=== PATIENT | female | born 1955 | race Caucasian/White ===

== ENCOUNTER 2016-09-08 22:16 | Emergency (ER) | payer OTHER ==
--- NOTE | 2016-09-08 22:22 | ERPHSYRPT ---
- History of Present Illness Time Seen by Provider: 09/08/16 22:16 Source: patient Exam Limitations: intoxication Physician History: ABOUT 45 MINUTES AGO PT WAS SITTING IN A CHAIR AT THE [employer], LOST CONSCIOUSNESS AND FELL OVER HITTING HER RIGHT OCCIPITAL AREA ON THE FLOOR WITH RESULTANT POSTERIOR NECK AND OCCIPITAL PAIN; DENIES NAUSEA, VOMITING, FEVER, CHEST PAIN, SHORTNESS OF AIR, WEAKNESS, NUMBNESS, ABDOMINAL PAIN. PT HAS HAD ONE OTHER SYNCOPAL EPISODE IN [facility] OF LAST YEAR AND WAS TREATED AT [facility]. Allergies/Adverse Reactions: No Known Drug Allergies Allergy (Unverified 09/08/16 22:49) - Review of Systems Constitutional: No Fever Ears, Nose, & Throat: No Ear Pain, No Throat Pain Respiratory: No Dyspnea Cardiac: No Chest Pain Abdominal/Gastrointestinal: No Abdominal Pain, No Nausea, No Vomiting Musculoskeletal: Neck Pain Neurological: Headache, Other (SYNCOPE) Endocrine: No Excessive Sweating All Other Systems: Reviewed and Negative - Nursing Vital Signs Nursing Vital Signs: Initial Vital Signs Temperature 97.2 F Temperature Source Oral Pulse Rate 68 Respiratory Rate 18 Blood Pressure [] 109/48 Pain Intensity 4 - Physical Exam General Appearance: alert Eye Exam: PERRL/EOMI Ears, Nose, Throat Exam: pharynx normal Neck Exam: other (MILD POSTERIOR NECK TENDERNESS) Respiratory Exam: lungs clear Cardiovascular Exam: normal heart sounds Gastrointestinal/Abdomen Exam: soft, normal bowel sounds Back Exam: other (HEALED INCISIONS OVER LUMBAR REGION), No vertebral tenderness Extremity Exam: normal range of motion Neurologic Exam: alert, cooperative, sensation nml, No motor deficits Skin Exam: other (MILD TENDERNESS AND EDEMA OF THE RIGHT SUPERIOR ASPECT OF THE OCCIPITAL AREA.) - Course Nursing assessment & vital signs reviewed: Yes EKG Interpreted by Me: RATE (64), Sinus Rhythm, NORMAL AXIS, NORMAL INTERVALS - Radiology Exams Chest X-ray Interpretation: Interpreted by me, No Pneumonia - CT Exams Head CT Interpretation: Tele-radiologist Report (NORMAL) Cervical Spine CT Interpretation: Tele-radiologist Report (NO FRACTURES OR DISLOCATIONS. DDD. FACET JOINT ARTHROPATHY.) Ordered Tests: Active Orders 24 hr Category Date Time Status Accucheck STAT Care 09/08/16 22:26 Active Cath for Specimen-Straight STAT Care 09/08/16 22:26 Active EKG-ER Only STAT Care 09/08/16 22:23 Active IV Insertion STAT Care 09/08/16 22:23 Active Oxygen-ED Only NASAL CANNULA 2 lpm Care 09/08/16 22:26 Active Pulse Oximetry (ED) STAT Care 09/08/16 22:26 Active CERVICAL SPINE WO CONTRAST [CT] Stat Exams 09/08/16 22:22 Taken CHEST 1 VIEW (PORTABLE) Stat Exams 09/08/16 22:24 Taken HEAD WITHOUT CONTRAST [CT] Stat Exams 09/08/16 22:22 Taken AMYLASE Stat Lab 09/08/16 22:51 Completed CBC W DIFF Stat Lab 09/08/16 22:51 Completed CMP Stat Lab 09/08/16 22:51 Completed CULTURE,URINE Stat Lab 09/09/16 01:21 Ordered ETHOH [Ethyl Alcohol,Urine] Stat Lab 09/08/16 00:34 Completed LIPASE Stat Lab 09/08/16 22:51 Completed MAGNESIUM Stat Lab 09/08/16 22:51 Completed TROPONIN Stat Lab 09/08/16 22:51 Completed UA W/ MICROSCOPIC Stat Lab 09/08/16 00:34 Completed Urine Triage Profile Stat Lab 09/08/16 00:34 Completed Medication Summary Discontinued Medications Generic Name Dose Route Start Last Admin Trade Name Freq PRN Reason Stop Dose Admin Sodium Chloride 1,000 mls @ 999 mls/hr 09/08/16 22:23 09/08/16 23:09 Sodium Chloride 0.9% 1000 Ml IV 09/08/16 23:23 999 mls/hr .Q1H1M STA Administration Sodium Chloride Confirm 09/08/16 23:03 Sodium Chloride 0.9% 1000 Ml Administered 09/08/16 23:04 Dose 1,000 mls @ ud .ROUTE .STK-MED ONE Sodium Chloride 1,000 mls @ 999 mls/hr 09/08/16 23:29 09/09/16 00:47 Sodium Chloride 0.9% 1000 Ml IV 09/09/16 00:29 999 mls/hr .Q1H1M STA Administration Sodium Chloride Confirm 09/09/16 00:46 Sodium Chloride 0.9% 1000 Ml Administered 09/09/16 00:47 Dose 1,000 mls @ ud .ROUTE .STK-MED ONE Lab/Rad Data: Laboratory Result Diagrams 09/08/16 22:51 09/08/16 22:51 Laboratory Results 09/08/16 09/08/16 09/08/16 Range/Units 22:51 22:51 00:34 WBC 10.1 (4.0-10.5) K/mm3 RBC 3.99 L (4.1-5.4) M/mm3 Hgb 13.6 (12.0-16.0) gm/dl Hct 39.2 (35-47) % MCV 98.2 (78-100) fl MCH 34.0 H (26-32) pg MCHC 34.7 (32-36) g/dl RDW 14.2 H (11.5-14.0) % Plt Count 264 (150-450) K/mm3 MPV 11.0 H (6-9.5) fl Gran % 44.0 (36.0-66.0) % Lymphocytes % 46.1 H (24.0-44.0) % Monocytes % 8.5 (0.0-12.0) % Eosinophils % 1.2 (0.00-5.0) % Basophils % 0.2 (0.0-0.4) % Basophils # 0.02 (0-0.4) Sodium 136 (136-145) mEq/L Potassium 4.6 (3.5-5.1) mEq/L Chloride 100 (98-107) mEq/L Carbon Dioxide 22.4 (21-32) mEq/L Anion Gap 17.7 H (5-15) MEQ/L BUN 29 H (9-20) mg/dL Creatinine 1.26 (0.55-1.30) mg/dl Estimated GFR 46 ML/MIN Glucose 99 (70-110) MG/DL Calcium 9.3 (8.5-10.1) mg/dL Magnesium 1.8 (1.8-2.4) mg/dL Total Bilirubin 0.4 (0.2-1.0) mg/dL AST 18 (15-37) U/L ALT 15 (12-78) U/L Alkaline Phosphatase 53 (46-116) U/L Troponin I < 0.017 (0.000-0.056) ng/ml Serum Total Protein 7.1 (6.4-8.2) gm/dL Albumin 3.8 (3.4-5.0) g/dL Amylase 38 (25-115) U/L Lipase 175 (73-393) U/L Ur Collection Type Urine Color (YELLOW) Urine Appearance (CLEAR) Urine pH 6.0 (5-6) Ur Specific [place] (1.005-1.025) Urine Protein (Negative) Urine Glucose (UA) (NEGATIVE) mg/dL Urine Ketones (NEGATIVE) Urine Nitrite (NEGATIVE) Urine Bilirubin (NEGATIVE) Urine Urobilinogen (0-1) mg/dL Urine WBC (Auto) (NEGATIVE) Urine RBC (Auto) (0-5) Kalin/ul Urine Microscopic RBC (0-2) /HPF Urine Microscopic WBC (0-5) /HPF Ur Epithelial Cells (FEW) /HPF Urine Bacteria (NEGATIVE) /HPF Urine Opiates Level (NEGATIVE) Ur Methadone (NEGATIVE) Urine Barbiturates (NEGATIVE) Ur Phencyclidine (PCP) (NEGATIVE) Urine Amphetamine (NEGATIVE) U Benzodiazepine Level (NEGATIVE) Urine Cocaine (NEGATIVE) Urine Marijuana (THC) (NEGATIVE) Urine Ethyl Alcohol 87 H (0.00-20) mg/dl Specimen Received 09/08/16 09/08/16 Range/Units 00:34 00:34 WBC (4.0-10.5) K/mm3 RBC (4.1-5.4) M/mm3 Hgb (12.0-16.0) gm/dl Hct (35-47) % MCV (78-100) fl MCH (26-32) pg MCHC (32-36) g/dl RDW (11.5-14.0) % Plt Count (150-450) K/mm3 MPV (6-9.5) fl Gran % (36.0-66.0) % Lymphocytes % (24.0-44.0) % Monocytes % (0.0-12.0) % Eosinophils % (0.00-5.0) % Basophils % (0.0-0.4) % Basophils # (0-0.4) Sodium (136-145) mEq/L Potassium (3.5-5.1) mEq/L Chloride (98-107) mEq/L Carbon Dioxide (21-32) mEq/L Anion Gap (5-15) MEQ/L BUN (9-20) mg/dL Creatinine (0.55-1.30) mg/dl Estimated GFR ML/MIN Glucose (70-110) MG/DL Calcium (8.5-10.1) mg/dL Magnesium (1.8-2.4) mg/dL Total Bilirubin (0.2-1.0) mg/dL AST (15-37) U/L ALT (12-78) U/L Alkaline Phosphatase (46-116) U/L Troponin I (0.000-0.056) ng/ml Serum Total Protein (6.4-8.2) gm/dL Albumin (3.4-5.0) g/dL Amylase (25-115) U/L Lipase (73-393) U/L Ur Collection Type CLEAN CATCH Urine Color YELLOW (YELLOW) Urine Appearance CLEAR (CLEAR) Urine pH 6.0 (5-6) Ur Specific [place] <=1.005 (1.005-1.025) Urine Protein NEGATIVE (Negative) Urine Glucose (UA) NEGATIVE (NEGATIVE) mg/dL Urine Ketones NEGATIVE (NEGATIVE) Urine Nitrite NEGATIVE (NEGATIVE) Urine Bilirubin NEGATIVE (NEGATIVE) Urine Urobilinogen 0.2 (0-1) mg/dL Urine WBC (Auto) SMALL (NEGATIVE) Urine RBC (Auto) TRACE-LYSED (0-5) Kalin/ul Urine Microscopic RBC 2-5 (0-2) /HPF Urine Microscopic WBC 5-10 (0-5) /HPF Ur Epithelial Cells MODERATE (FEW) /HPF Urine Bacteria MODERATE (NEGATIVE) /HPF Urine Opiates Level NEG. (NEGATIVE) Ur Methadone NEG. (NEGATIVE) Urine Barbiturates NEG. (NEGATIVE) Ur Phencyclidine (PCP) NEG. (NEGATIVE) Urine Amphetamine NEG. (NEGATIVE) U Benzodiazepine Level NEG. (NEGATIVE) Urine Cocaine NEG. (NEGATIVE) Urine Marijuana (THC) NEG. (NEGATIVE) Urine Ethyl Alcohol (0.00-20) mg/dl Specimen Received 09/09/160 - Departure Time of Disposition: 01:26 Departure Disposition: Home Clinical Impression: SYNCOPE, HEAD CONTUSION, ALCOHOL INTOXICATION, DEHYDRATION, UTI Condition: Fair Critical Care Time: No Referrals: CHRISTIN MORTON NP [Primary Care Provider] - Instructions: Fainting, Dehydration -- Adult, Urinary Tract Infection (UTI), Closed Head Injury Additional Instructions: FOLLOW UP WITH PRIVATE DOCTOR TOMORROW. Prescriptions: Smz/Tmp Ds Tablet [Bactrim Ds Tablet] 1 udtab PO BID #20 tablet
[2016-09-08] MEDS ORDERED: Sodium Chloride 0.9% 1000 ML 1,000 ML IV STA ×2 (22:23→23:29)
[2016-09-08 22:56] LABS: BASOPHIL % 0.2 % (0.0-0.4); Eosinophil % 1.2 % (0.00-5.0); Lymphocytes % 46.1 % (24.0-44.0); Mean Cell Volume 98.2 fl (78-100); Monocytes % 8.5 % (0.0-12.0); Platelet Count 264 K/mm3 (150-450); Red Blood Count 3.99 M/mm3 (4.1-5.4); Red Cell Distribution Width 14.2 % (11.5-14.0); White Blood Count 10.1 K/mm3 (4.0-10.5)
[2016-09-08] MEDS ORDERED: Sodium Chloride 0.9% 1000 ML 1,000 ML ONE (23:03)
[2016-09-08 23:18] LABS: ALBUMIN 3.8 g/dL (3.4-5.0); ALKALINE PHOSPHATASE 53 U/L (46-116); ANION GAP 17.7 MEQ/L (5-15); BILIRUBIN,TOTAL 0.4 mg/dL (0.2-1.0); BLOOD UREA NITROGEN 29 mg/dL (9-20); CHLORIDE 100 mEq/L (98-107); Carbon Dioxide 22.4 mEq/L (21-32); Glucose 99 MG/DL (70-110); LIPASE 175 U/L (73-393); MAGNESIUM 1.8 mg/dL (1.8-2.4); Potassium 4.6 mEq/L (3.5-5.1); SGOT/AST 18 U/L (15-37); SGPT/ALT 15 U/L (12-78); SODIUM 136 mEq/L (136-145); TROPONIN < 0.017 ng/ml (0.000-0.056); Total Protein 7.1 gm/dL (6.4-8.2)
[2016-09-09] MEDS ORDERED: Sodium Chloride 0.9% 1000 ML 1,000 ML ONE (00:46)
[2016-09-09 00:56] LABS: Bacteria MODERATE /HPF (NEGATIVE); COMPLETE URINE MICROSCOPIC? YES; Collection Type CLEAN CATCH; Epithelial Cells MODERATE /HPF (FEW)
[2016-09-09] MEDS ORDERED: ROCEPHIN 1 Gm-D5w 50 ml Bag** 50 ML IV ONE ×2 (01:21→01:28)
[2016-09-09 01:53] VITALS: BP 112/61; PULSE 71; O2SAT 95
--- NOTE | 2016-09-09 09:48 | XRAY ---
Indication: Syncope. Status post fall. Comparison: None Portable chest demonstrate normal heart and lungs. Bony thorax intact with mild osteopenia and degenerative changes.
--- NOTE | 2016-09-09 09:50 | XRAY ---
Indication: Headache and pain following fall. Multiple contiguous axial images obtained through the head without contrast. Comparison: None Normal appearing brain parenchyma, ventricles, and bony calvarium. Visualized paranasal sinuses and mastoid air cells are pneumatized and clear. Impression: Normal CT head without contrast exam. Comment: Preliminary interpretation was made by [facility]. No discrepancy. CTDI 49.85
--- NOTE | 2016-09-09 09:52 | XRAY ---
Indication: Headache and pain following fall. Multiple contiguous axial images obtained through the cervical spine. Sagittal and coronal reformatted images obtained. Comparison: None Axial images negative for acute fracture, suspicious bony lesions, or spinal canal stenosis. Mild C5-C7 degenerative endplate spurring. Sagittal and coronal reformatted images demonstrates lordotic straightening, positional versus paraspinal muscular spasm. Mild C5-C7 disc space narrowing. No acute compression fracture, subluxation, or jumped facet. Normal-appearing craniocervical junction. Visualized noncontrasted soft tissues including base of the brain and lung apices unremarkable. Impression: Negative for acute fracture/subluxation. Lordotic straightening, positional versus paraspinal spasm. C5-C7 degenerative changes. Comment: Preliminary interpretation was made by [facility]. No discrepancy. CTDI 117.67
== END 2016-09-09 02:04 | disposition home or self-care (01) ==
LOC: ED 22:16
DX: R55 Syncope and collapse (principal); S00.93XA Contusion of unspecified part of head, initial encounter; F10.129 Alcohol abuse with intoxication, unspecified; E86.0 Dehydration; N39.0 Urinary tract infection, site not specified; W17.89XA Other fall from one level to another, initial encounter; Y92.89 Other specified places as the place of occurrence of the external cause
CPT/HCPCS: 36000; 36415; 70450; 71010; 72125; 80053; 80307; 80320; 81000; 82150; 82962; 83690; 83735; 83986; 84484; 85025; 87077; 87086; 87186; 93005; 96360; 96361; 96365; 99283; 99284; J0696

== ENCOUNTER 2017-03-20 18:20 | Emergency (ER) | payer OTHER ==
[2017-03-20] MEDS ORDERED: TORAdol 30 mg Injection IM ONE (19:14)
[2017-03-20] MEDS ORDERED: TORAdol 30 mg Injection ONE (19:17)
--- NOTE | 2017-03-20 19:20 | ERPHSYRPT ---
- History of Present Illness Time Seen by Provider: 03/20/17 19:00 Source: patient Exam Limitations: no limitations Patient Subjective Stated Complaint: states fell into a hole. pain to left knee and right shoulder. states she causey pain in her right lower back Triage Nursing Assessment: alert and oriented. denies hitting head no LOC. swelling to left knee. + pedal pulse. able to ambulate. pain ro right shoulder with + radial pulse present. No bruising n oted. pain to right lower back. Physician History: THIRTEEN DAYS AGO PT WAS CHASING AFTER HER DOG WHEN SHE FELL INTO A 4 FOOT DEEP HOLE ON PRIVATE PROPERTY WITH RESULTANT PAIN IN THE RIGHT SHOULDER, LEFT KNEE AND RIGHT LOWER BACK. PT DENIES NUMBNESS; DENIES PRIOR INJURY TO THE RIGHT SHOULDER AND LEFT KNEE; ADMITS TO 2 PRIOR LOW BACK SURGERIES ABOUT 2 YEARS AGO [address] TRAN. PT DENIES CHEST PAIN, VOMITING, ABDOMINAL PAIN, SHORTNESS OF AIR, NECK PAIN, HEADACHE. Allergies/Adverse Reactions: No Known Drug Allergies Allergy (Verified 03/20/17 18:48) Home Medications: Aspirin 81 mg PO DAILY 03/20/17 [History] Buspirone HCl [Buspar] 10 mg PO TID 03/20/17 [History] Calcium Carbonate/Vitamin D3 [Calcium 1,000 + D3 Caplet] 1 tab PO DAILY [History] Citalopram Hydrobromide [ceLEXa] 40 mg PO DAILY 03/20/17 [History] Fenofibrate Nanocrystallized [Fenofibrate] 48 mg PO DAILY 03/20/17 [History] Gabapentin 300 mg PO TID 03/20/17 [History] Hydrochlorothiazide 25 mg [hydroDIURIL 25 MG] 25 mg PO DAILY 03/20/17 [ History] Lisinopril 40 mg PO DAILY 03/20/17 [History] Meloxicam 15 mg [Meloxicam 15 MG] 15 mg PO DAILY 03/20/17 [History] Metformin HCl 850 mg [Glucophage 850 MG] 850 mg PO BID 03/20/17 [History] Metoprolol Succinate 25 mg PO BID 03/20/17 [History] Omeprazole 20 MG [Prilosec 20 mg] 20 mg PO DAILY 03/20/17 [History] Oxybutynin Chloride [Oxybutynin Chloride ER] 15 mg PO DAILY 03/20/17 [History] Hx Tetanus, Diphtheria Vaccination/Date Given: Yes Hx Influenza Vaccination/Date Given: No Hx Pneumococcal Vaccination/Date Given: No - Review of Systems Respiratory: No Dyspnea Cardiac: No Chest Pain Abdominal/Gastrointestinal: No Abdominal Pain, No Vomiting Musculoskeletal: Other (LEFT KNEE PAIN; RIGHT SHOULDER PAIN; LOW BACK PAIN.), No Neck Pain Neurological: No Headache All Other Systems: Reviewed and Negative - Past Medical History Pertinent Past Medical History: Yes Cardiac History: High Cholesterol, Hypertension Respiratory History: No Pertinent History Endocrine Medical History: Diabetes Type II Musculoskeletal History: No Pertinent History GI Medical History: GERD History: No Pertinent History Psycho-Social History: No Pertinent History Female Reproductive Disorders: No Pertinent History - Past Surgical History Past Surgical History: Yes Gastrointestinal: Cholecystectomy Musculoskeletal: Orthopedic Surgery Female Surgical History: Hysterectomy Other Surgical History: back surgey x2. gastric bypass last year - Social History Smoking Status: Current every day smoker How long have you smoked: 8yrs Exposure to second hand smoke: Yes Drug Use: none Patient Lives Alone: No - Nursing Vital Signs Nursing Vital Signs: Initial Vital Signs Temperature 97.6 F 03/20/17 18:29 Pulse Rate 83 03/20/17 18:29 Respiratory Rate 16 03/20/17 18:29 Blood Pressure 138/77 03/20/17 18:29 O2 Sat by Pulse Oximetry 99 03/20/17 18:29 Pain Scale Pain Intensity [Left Knee] 5 Pain Intensity [Right Shoulder 3 ] Pain Intensity [Right Back] 5 Pain Intensity 0 - [place] Coma Score Best Eye Response (Katina): (4) open spontaneously Best Verbal Response (Katina): (5) oriented Best Motor Response (Katina): (6) obeys commands [place] Total: 15 - Physical Exam General Appearance: alert Head Injury: no evidence of injury Eye Exam: PERRL/EOMI ENT Exam: airway nml, nml ext.inspection, hearing grossly normal Neck Exam: trachea midline, normal inspection, No tenderness Respiratory/Chest Exam: normal breath sounds Cardiovascular Exam: normal heart sounds Gastrointestinal Exam: soft, normal bowel sounds Back Exam: other (MILD RIGHT LOWER BACK TENDERNESS WITHOUT BRUISING.) Extremity Exam: swelling (MILD EDEMA OF THE LEFT KNEE WITH FLEXION LIMITED TO 150 DEGREES AND PAIN ON ROM - NO TENDERNESS. RIGHT SHOULDER HAS FULL ROM WITH MILD TENDERNESS OF THE SUPERIOR ASPECT WITHOUT BRUISING.) Peripheral Pulses: dorsalis-pedis (R): 2+, dorsalis-pedis (L): 2+ Neurologic Exam: alert, cooperative, normal mood/affect, sensation nml Skin Exam: warm, dry SpO2 Interpretation: normal SpO2: 99 Oxygen Delivery: Room Air - Course Nursing assessment & vital signs reviewed: Yes - Radiology Exams L-Spine X-ray Interpretation: Teleradiologist Report (NEGATIVE FOR ACUTE BONE ABNORMALITIES.) Right Shoulder X-ray Interpretation: Teleradiologist Report (NORMAL RIGHT SHOULDER X-RAYS.) Left Knee X-ray Interpretation: Teleradiologist Report (SEVERE ARTHRITIS. NO ACUTE FRACTURE OR DISLOCATION. MODERATE SUPRAPATELLAR JOINT EFFUSION.) Ordered Tests: Active Orders 24 hr Category Date Time Status KNEE (3 VIEWS) Stat Exams 03/20/17 19:14 Taken LUMBAR COMPLETE (MIN 4 VIEWS) Stat Exams 03/20/17 19:14 Taken SHOULDER Stat Exams 03/20/17 19:14 Taken Medication Summary Discontinued Medications Generic Name Dose Route Start Last Admin Trade Name Freq PRN Reason Stop Dose Admin Ketorolac Tromethamine 60 mg 03/20/17 19:14 03/20/17 19:20 Toradol 30 Mg Injection IM 03/20/17 19:15 60 mg STAT ONE Administration Ketorolac Tromethamine Confirm 03/20/17 19:17 Toradol 30 Mg Injection Administered 03/20/17 19:18 Dose 60 mg .ROUTE .[facility] ONE - Departure Time of Disposition: 21:23 Departure Disposition: Home Clinical Impression: SPRAIN OF RIGHT SHOULDER AND LEFT KNEE, LUMBAR SPRAIN Condition: Stable Critical Care Time: No Referrals: CHRISTIN MORTON NP [Primary Care Provider] - Instructions: Low Back Pain, Shoulder Sprain Additional Instructions: FOLLOW UP WITH PRIVATE DOCTOR TOMORROW. ELEVATE LEFT KNEE ABOVE HEART LEVEL FOR 24 HOURS. MARCO A WRAP TO LEFT KNEE FOR 4 DAYS. NO WEIGHT BEARING ON LEFT FOOT FOR 4 DAYS. USE CRUTCHES FOR 2 WEEKS. WEAR RIGHT ARM SLING FOR COMFORT WHILE NOT USING CRUTCHES. Prescriptions: Naproxen [Naprosyn] 500 mg PO Q12H PRN PRN #20 tablet PRN Reason: Pain
[2017-03-20 20:33] VITALS: BP 129/67; PULSE 64
[2017-03-20 21:23] VITALS: O2SAT 99
[2017-03-20] MEDS ORDERED: NORCO 5/325 MG PO ONE (21:24)
[2017-03-20] MEDS ORDERED: NORCO 5/325 MG ONE (21:30)
--- NOTE | 2017-03-21 09:21 | XRAY ---
Indication: Pain following fall. Comparison: None 3 views of the left knee demonstrates moderate tricompartmental degenerative changes and small nonspecific suprapatellar effusion. No other bony, articular, or soft tissue abnormalities. Comment: Preliminary interpretation was made by [facility]. No discrepancy.
--- NOTE | 2017-03-21 09:27 | XRAY ---
Indication: Pain following fall. Comparison: None 5 views of the lumbar spine demonstrates mild/moderate multilevel degenerative spondylosis, mild levoscoliosis, 12 mm L4 spondylolisthesis, L4-L5 posterior fusion surgery with right L4 pedicle screw fracture, and scattered aortoiliac calcifications. No other bony, articular, or soft tissue abnormalities. Comment: Preliminary interpretation was made by [facility]. Pedicle screw fracture now reported.
--- NOTE | 2017-03-21 09:31 | XRAY ---
Indication: Pain following fall. Comparison: None 3 views of the right shoulder demonstrates mild degenerative changes of the acromioclavicular and glenohumeral articulation. No other bony, articular, or soft tissue abnormalities. Comment: Preliminary interpretation was made by [facility]. No critical discrepancy.
== END 2017-03-20 21:50 | disposition home or self-care (01) ==
LOC: ED 18:20
DX: S43.401A Unspecified sprain of right shoulder joint, initial encounter (principal); S83.91XA Sprain of unspecified site of right knee, initial encounter; S33.5XXA Sprain of ligaments of lumbar spine, initial encounter; W17.2XXA Fall into hole, initial encounter; E78.00 Pure hypercholesterolemia, unspecified; I10 Essential (primary) hypertension; E11.9 Type 2 diabetes mellitus without complications
CPT/HCPCS: 72110; 73030; 73562; 96372; 99284; J1885; A9270-GY